=== PATIENT | female | born 1995 | race Caucasian/White ===

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

== ENCOUNTER → 2017-02-09 | Outpatient (REF) | payer OTHER | LOC: M LAB REF 12:31 | PROVIDERS: ATTEND Physician Assistant | DX: J02.9 Acute pharyngitis, unspecified (principal) ==

== ENCOUNTER → 2017-05-27 | Outpatient (CLI) | payer OTHER ==
[2017-05-27 17:27] LABS: CONTROL LINE HCG INT CTR LINE PRESENT; HCG, SERUM QUALITATIVE NEGATIVE (NEGATIVE)
[2017-05-27 17:50] LABS: FREE T4 0.93 NG/DL (0.78-1.33)
== END ==
LOC: M WUC 14:02
DX: N91.2 Amenorrhea, unspecified (principal)

== ENCOUNTER 2017-11-19 19:14 | Emergency (ER) | payer OTHER ==
[2017-11-19 20:14] LABS: AMORPHOUS SEDIMENT RFX SMALL (NEGATIVE); KETONE, URINE AUTO RFX NEGATIVE (NEGATIVE); LEUKOCYTE ESTERASE UR AUTO RFX NEGATIVE (NEGATIVE); MUCUS, URINE RFX SMALL (NEGATIVE); NITRITE, URINE AUTO RFX NEGATIVE (NEGATIVE); RBC, URINE AUTO RFX 2 /HPF (0-3); SQUAM EPITHELIAL CELL UR AURFX 1 /HPF (0-6); WBC, URINE AUTO RFX 1 /HPF (0-3)
[2017-11-19 20:18] LABS: CONTROL LINE UCG INT CTR LINE PRESENT; URINE PREG TEST NEGATIVE (NEGATIVE)
[2017-11-19] MEDS: metroNIDAZOLE (FLAGYL) 500 MG TAB PO (20:31)
[2017-11-19 21:28] LABS: CHLAMYDIA DNA AMPLIFICATION NEGATIVE (NEGATIVE); GC DNA AMPLIFICATION NEGATIVE (NEGATIVE)
== END 2017-11-19 20:45 | disposition home or self-care (01) ==
LOC: M ED 19:14
DX: N76.0 Acute vaginitis (principal); J45.909 Unspecified asthma, uncomplicated; I73.9 Peripheral vascular disease, unspecified; F41.9 Anxiety disorder, unspecified; F17.210 Nicotine dependence, cigarettes, uncomplicated; Z88.8 Allergy status to other drugs, medicaments and biological substances; Z79.899 Other long term (current) drug therapy
CPT/HCPCS: 84703

== ENCOUNTER → 2018-10-04 | Outpatient (CLI) | payer OTHER ==
[~2018-10-04] MED LIST: CETI10TA; FLAG500T PO; FLUC150T; MONT10TA2
--- NOTE | 2018-10-05 09:10 | REP ---
Lumbar spine series: Five views. History: Sciatica. Findings: There is reversal of the normal lumbar lordosis and straightening. Vertebral body heights are preserved. Alignment is otherwise normal. There is no evidence to suggest spondylolysis or spondylolisthesis. Facets are normally aligned. Psoas margins are symmetric. The upper sacrum is included in the imaging field of view and is unremarkable. There is a surgical clip in the right midabdomen and there are multiple clips in the right upper quadrant. Impression: Reversal of the normal lumbar lordosis and straightening. Otherwise negative radiographs of the lumbar spine. Electronically Signed by Alcides Menendez MD 10/05/2018 01:57 P
== END ==
LOC: M WUC 18:15
PROVIDERS: ATTEND Physician Assistant
DX: M54.42 Lumbago with sciatica, left side (principal)

== ENCOUNTER → 2018-12-13 | Outpatient (REF) | payer OTHER ==
[2018-12-15 14:26] LABS: HPV HYBRID CAPTURE II Positive (Negative)
== END ==
LOC: M LAB REF 17:42
PROVIDERS: ATTEND Physician Assistant Medical
DX: Z12.4 Encounter for screening for malignant neoplasm of cervix (principal)

== ENCOUNTER 2019-01-13 15:05 | Emergency (ER) | payer OTHER ==
[~2019-01-13] VITALS: Ht 162.6 cm; Wt 80.5 kg
[2019-01-13] MEDS ORDERED: IBUP80TA PO (15:15)
[2019-01-13] MEDS ORDERED: ACET-683 PO (15:15)
[2019-01-13] MEDS ORDERED: RHOGAM 300 MCG (1500 IU) INJ (J2790) IM ONE (16:30)
[2019-01-13 17:22] VITALS: BP 154/74
== END 2019-01-13 17:25 | disposition home or self-care (01) ==
LOC: M ED 15:05
DX: Z29.13 Encounter for prophylactic Rho(D) immune globulin (principal); O04.89 (Induced) termination of pregnancy with other complications; Z87.448 Personal history of other diseases of urinary system; Z87.891 Personal history of nicotine dependence; Z88.8 Allergy status to other drugs, medicaments and biological substances; Z91.018 Allergy to other foods
CPT/HCPCS: 86850; 86900; 86901; 96372; 99283; J2790